=== PATIENT | female | born 1985 | race Caucasian/White ===

== ENCOUNTER 2020-08-25 07:53 | Observation (INO) | payer OTHER, SELFPAY ==
--- NOTE | ~2020-08-25 | US_ITS ---
EXAMINATION: US OB limited DATE: 08/25/2020 09:24 INDICATION: Vaginal bleeding during second trimester twin TECHNIQUE: Real-time ultrasound of the pelvis was performed. The interpreting radiologist was not pre sent for the study. COMPARISON: None. FINDINGS: There is an intrauterine twin . The fetuses are by a thin membrane and i n breech presentation. The placentas are posterior. The placenta for baby A and abuts the internal ce rvical os. There is a 1.6 x 2.3 x 0.8 cm hypoechoic area along the margin of the placenta of baby A. cardiac activity and movement are noted. heart rate is 141 bpm for baby A and 169 b pm for baby B. The amniotic fluid index is subjectively normal. IMPRESSION: 1. Live twin pregnancies in breech presentation. 2. Hypoechoic area along the placental margin of baby A which could reflect small hemorrhage. 3. Low-lying placenta for baby A. Reviewed, dictated and finalized at location A. IMPRESSION: 1. Live twin pregnancies in breech presentation. 2. Hypoechoic area along the placental margin of baby A which could reflect sma ll hemorrhage. 3. Low-lying placenta for baby A.
[2020-08-25 08:15] VITALS: BP 122/57; PULSE 77
[2020-08-25 08:22] VITALS: BP 122/57; PULSE 77
[2020-08-25 08:24] VITALS: BP 102/56; PULSE 77
[2020-08-25 08:30] VITALS: BP 91/54; PULSE 78
[2020-08-25 08:40] VITALS: BP 97/58; PULSE 77
[2020-08-25 08:50] VITALS: BP 101/65; PULSE 82
--- NOTE | 2020-08-25 09:02 | PM.IMHP ---
H&P: HPI History of Present Illness Date/Time: 08/25/20 09:02 Chief Complaint: bleeding, twin Narrative: Yasemin is a at 19 weeks with mono/di twins who presents for bleeding. At 530 had a small gush of dark blood, since then spotting brown. Has velamentous cord insert x2. Saw MFM last on Thursday. NO cramping or pain. Is Rh neg. Had an episode similar to this in June, stopped ASA at that time, and MFM just restarted it on Thursday. Review of Systems Review of Systems: All systems reviewed & are unremarkable except as noted in HPI and below Meds Home Medications and Allergies Home Medications Medication Instructions Recorded Confirmed Type [id number] fumarate-FA 1 tablet PO DAILY 08/25/20 08/25/20 History [] aspirin [Aspir-81] 81 mg PO DAILY 08/25/20 08/25/20 History cholecalciferol (vitamin D3) 25 mcg PO DAILY 08/25/20 08/25/20 History [Vitamin D3] Allergies Allergy/AdvReac Type Severity Reaction Status Date / Time No Known Allergies Allergy Unverified 05/03/13 19:34 Vital Signs Vital Signs - 24 hr 08/25/20 08:15 08/25/20 08:22 08/25/20 08:24 Pulse Rate 77 77 77 Blood Pressure 122/57 L 122/57 L 102/56 L 08/25/20 08:30 08/25/20 08:40 08/25/20 08:50 Pulse Rate 78 77 82 Blood Pressure 91/54 L 97/58 L 101/65 Exam Const: General: no acute distress Resp: Effort & Inspection: normal respiratory effort GI: GI Palp: Yes Soft to palpation Other: nontender, uterus soft : Other: toco: no contractions or irritability SSE: cervix visually closed with some mucous with brown/dark red blood mixed in gentle SVE: ext os 0.5cm, int closed Extrem: General: normal to inspection Assessment and Plan Assessment and plan (1) Monochorionic diamniotic twin gestation in second trimester: Code(s): O30.032 - Twin , monochorionic/diamniotic, second trimester Status: Acute (2) Antepartum bleeding, second trimester: Code(s): O46.92 - Antepartum hemorrhage, unspecified, second trimester Status: Acute (3) Velamentous insertion of umbilical cord in second trimester: Code(s): O43.122 - Velamentous insertion of umbilical cord, second trimester Status: Acute Additional Plan CBC Rhogam US in radiology for well being and source of bleeding SSE is reassuring Will talk with MFM on Thursday re possibly stopping ASA pelvic rest
[2020-08-25 09:07] LABS: Hemoglobin 11.9 g/dL (12.0-15.0); Mean Corpuscular HGB Conc 33.1 g/dl (32-36); Mean Corpuscular Hemoglobin 29.3 pg (26-34); Mean Corpuscular Volume 88.7 fl (80-100); Mean Platelet Volume 10.9 fl (7.4-10.4); Platelet Count Result 229 k/mm3 (150-375); Red Blood Count 4.06 M/mm3 (4.2-5.4); Red Cell Distribution Width 14.2 % (11.5-14.5); White Blood Count 8.7 K/mm3 (4.5-10.0)
--- NOTE | 2020-08-25 10:05 | PC.NURSE ---
1005--Report to Dr. Alvarez re: u/s report, orders received that pt. may go home after rhogam injection and educate her re: pelvic rest.
[2020-08-25 10:08] VITALS: BMI 29.7
--- NOTE | 2020-08-25 10:08 | OBADM ---
This patient, Yasemin Alva, admitted to the OB room OB Post 116 for observation. Patient/family oriented to hospital policies and general routines including ID bracelet, bed and alarms, visiting hours, pain management, procedures, bathroom and other care routines, personal items, smoking policy, room service/diet, and visiting hours. Patient/Family are encouraged to report perceived risks to care and to ask questions if they do not understand what they are told or what they should do. Pt. reports gush of blood at approx. 0530, she states it was maroonish, brownish and only happened once. She denies intercourse, a fall or bump on her abdomen. Pt. denies any pain and reports movement. She is with twins 18.6 weeks gestation as a result of IVF and states she was started on ASA 81mg on Thursday. Kinmundy applied and will monitor and notify
[2020-08-25] MEDS: RHO(D) IMMUNE GLOBULIN 300 MCG/2 ML SYRINGE IM (10:48)
== END 2020-08-25 10:55 | disposition home or self-care (01) ==
PROVIDERS: Admitting Provider Obstetrics & Gynecology; Visit Provider Obstetrics & Gynecology
DX: O30.032 Twin pregnancy, monochorionic/diamniotic, second trimester (principal); O43.122 Velamentous insertion of umbilical cord, second trimester; O46.92 Antepartum hemorrhage, unspecified, second trimester; Z3A.19 19 weeks gestation of pregnancy; Z79.82 Long term (current) use of aspirin
CPT/HCPCS: 36415; 76815; 85027; 85461; 90384; 96372; G0378; G0379; J2790

== ENCOUNTER 2020-09-14 08:47 | Outpatient (CLI) | payer OTHER, SELFPAY ==
[2020-09-14] MEDS: RHO(D) IMMUNE GLOBULIN 300 MCG/2 ML SYRINGE IM (12:45)
== END 2020-09-14 08:48 | disposition home or self-care (01) ==
LOC: ANHOBOP 09:13
PROVIDERS: Visit Provider Obstetrics & Gynecology
DX: Z36.89 Encounter for other specified antenatal screening (principal); O36.0130 Maternal care for anti-D [Rh] antibodies, third trimester, not applicable or unspecified; Z3A.00 Weeks of gestation of pregnancy not specified
CPT/HCPCS: 36415; 85461; 86880; 90384; 96372; J2790

== ENCOUNTER 2020-11-20 08:37 | Outpatient (RCR) | payer OTHER, SELFPAY ==
[2020-11-19] MEDS: BETAMETHASONE SOD PHOS/ACETATE 30 MG/5 ML VIAL 12 MG IM (09:01)
[2020-11-20] MEDS: BETAMETHASONE SOD PHOS/ACETATE 30 MG/5 ML VIAL 12 MG IM (09:00)
== END 2020-12-24 14:54 | disposition home or self-care (01) ==
LOC: ANHOBOP 08:37
PROVIDERS: Visit Provider Obstetrics & Gynecology
DX: O36.8990 Maternal care for other specified fetal problems, unspecified trimester, not applicable or unspecified (principal); Z3A.00 Weeks of gestation of pregnancy not specified
CPT/HCPCS: 96372; J0702

== ENCOUNTER 2020-11-20 08:38 | Outpatient (RCR) | payer OTHER, SELFPAY ==
[2020-11-20] MEDS: RHO(D) IMMUNE GLOBULIN 300 MCG/2 ML SYRINGE IM (08:59)
== END 2021-02-17 23:59 | disposition home or self-care (01) ==
LOC: ANHLAB 08:38
PROVIDERS: Visit Provider Obstetrics & Gynecology
DX: Z29.13 Encounter for prophylactic Rho(D) immune globulin (principal); O36.0190 Maternal care for anti-D [Rh] antibodies, unspecified trimester, not applicable or unspecified; Z3A.00 Weeks of gestation of pregnancy not specified
CPT/HCPCS: 36415; 85461; 86880; 86902; 90384; 96372; J2790

== ENCOUNTER 2020-12-01 05:58 | Observation (INO) | payer OTHER, SELFPAY ==
[2020-12-01] VITALS (11 sets, daily range): BP systolic 101–111; BP diastolic 56–75; PULSE 88–119; RESP 16; O2SAT 99–100; BMI 31.0
--- NOTE | 2020-12-01 06:50 | OBADM ---
This patient, Yasemin Alva, admitted to the OB room Labor/Delivery/Recovery 119 at 0558 for observation for premature ROM. Patient/family oriented to hospital policies and general routines including ID bracelet, bed and alarms, visiting hours, pain management, procedures, bathroom and other care routines, personal items, smoking policy, room service/diet, and visiting hours. Patient/Family are encouraged to report perceived risks to care and to ask questions if they do not understand what they are told or what they should do.
[2020-12-01] MEDS: TERBUTALINE SULFATE 1 MG/ML VIAL 0.25 MG SUB-Q (07:26)
[2020-12-01] MEDS: LACTATED RINGERS 1,000 ML 125 ML IV CONT (07:34)
--- NOTE | 2020-12-01 08:06 | PM.IMHP ---
H&P: HPI History of Present Illness Date/Time: 12/01/20 08:06Is patient is a 35-year-old 6 para 3023 at 32 weeks and 6 days twin Monochorionic diamniotic gestation presents with ruptured membranes. Her is complicated by a Vasa previa, low-lying placenta, velamentous insertion. she is Rh negative and has received RhoGAM previously 2 times. She has also received steroids on the & 20 November 2020. She feels pressure but no contractions. She denies any vaginal bleeding. She denies any nausea, vomiting, fever, chills. She denies any chest pain or shortness of breath. Chief Complaint: Watery vaginal discharge Review of Systems Review of Systems: All systems reviewed & are unremarkable except as noted in HPI and below Meds Home Medications and Allergies Home Medications Medication Instructions Recorded Confirmed Type 1 tablet PO DAILY 08/25/20 08/25/20 History aspirin 81 mg PO DAILY 08/25/20 08/25/20 History cholecalciferol (vitamin D3) 25 mcg PO DAILY 08/25/20 08/25/20 History [Vitamin D3] Allergies Allergy/AdvReac Type Severity Reaction Status Date / Time No Known Allergies Allergy Unverified 05/03/13 19:34 Exam Const: General: healthy appearing, comfortable and no acute distress Resp: Auscultation: clear to auscultation bilaterally, no rales, no rhonchi and no wheezes Cardio: Rate: regular rate Heart sounds: no click, no murmurs and no rubs GI: Inspection: non-distended Auscultation: normal bowel sounds Extrem: General: normal to inspection, no pedal edema and no calf tenderness Assessment and Plan Assessment and plan (1) Velamentous insertion of umbilical cord in second trimester: Code(s): O43.122 - Velamentous insertion of umbilical cord, second trimester Status: Acute (2) Antepartum bleeding, second trimester: Code(s): O46.92 - Antepartum hemorrhage, unspecified, second trimester Status: Acute (3) Monochorionic diamniotic twin gestation in second trimester: Code(s): O30.032 - Twin , monochorionic/diamniotic, second trimester Status: Acute (4) Low lying placenta nos or without hemorrhage, third trimester: Code(s): O44.43 - Low lying placenta NOS or without hemorrhage, third trimester Status: Acute (5) Vasa previa: Code(s): O69.4XX0 - Labor and delivery complicated by vasa previa, not applicable or unspecified Status: Acute (6) Rh negative state in antepartum period: Code(s): O26.899 - Other specified related conditions, unspecified trimester; Z67.91 - Unspecified blood type, Rh negative Status: Acute Assessment and Plan: this patient is a 35-year-old female at 32 weeks gestation with a mono chorionic diamniotic twins with premature rupture membranes. her is complicated by Vasa previa, low-lying placenta, velamentous cord insertion, Rh negative, in-vitro fertilization. She is known to the doctors at [facility]. She does not appear to be in labor. She is very stable. Terbutaline and magnesium sulfate have been applied. She was examined with speculum and cervix appears to be closed. It appears to be thick. She received steroids on the and 21 November 2019. She will be transferred by air to [facility]. Dr. CASTILLO has accepted the transfer.
[2020-12-01] MEDS: MAGNESIUM SULF 4 GM/WATER100ML 4 GM/100 ML BAG IVPB (08:12)
== END 2020-12-01 08:58 | disposition short-term general hospital (02) ==
PROVIDERS: Admitting Provider Obstetrics & Gynecology; Visit Provider Obstetrics & Gynecology
DX: O30.033 Twin pregnancy, monochorionic/diamniotic, third trimester (principal); O69.4XX0 Labor and delivery complicated by vasa previa, not applicable or unspecified; O43.123 Velamentous insertion of umbilical cord, third trimester; O42.913 Preterm premature rupture of membranes, unspecified as to length of time between rupture and onset of labor, third trimester; O44.43 Low lying placenta NOS or without hemorrhage, third trimester; Z3A.32 32 weeks gestation of pregnancy
CPT/HCPCS: 84112; 96372; 96374; G0378; G0379; J3105; J3475; J7120

== ENCOUNTER 2022-07-22 01:13 | Day surgery (SDC) | payer OTHER, SELFPAY ==
--- NOTE | 2022-07-14 10:27 | SUR.PREOP ---
Report to the Outpatient Waiting Room, entrance under the green pavilion located off [facility], at time 0630 on date 07/22/22. Planned Procedure Time: 0830. Time changes happen often and if your time is changed the preop area will call you the afternoon before. - You and your visitor will be asked to self-screen and do not enter if you have any COVID symptoms. - A mask is optional within the hospital at this time. Patients may have clear liquids (water, carbonated beverages, clear teas, apple juice) until 3 hours prior to surgery with a maximum of 20 ounces. - NO CLEAR LIQUIDS AFTER 0530 - No food from midnight until time of surgery - Infants may have breast milk until 4 hours before surgery, formula 6 hours prior to surgery. - Children will be allowed to drink immediately following surgery. If applicable, please bring a bottle or sippy cup to assist with drinking. Juice, water, soda, and popsicles are readily available. For infants on formula, please bring formula the day of surgery. Pacifiers are allowed. Please no make-up, nail malawian, hairspray, perfume, deodorant, or body powder the day of surgery. No jewelry (including any body piercings) or valuables the day of surgery, leave them at home. Please take a shower or bath the night before, or the morning of, surgery with an antibacterial soap. Wear comfortable, loose fitting clothing. Children are encouraged to wear pajamas. - Jewelry must be removed prior to entering the operating room. Rings and piercings that are not removed may be cut off. - The hospital will not accept responsibility for valuables. - Please leave all valuables, including medications, at home the day of surgery. If you are going home after surgery, a licensed batch mixing truck driver must drive you home. - NO public transportation without another adult if you receive anesthesia. - We recommend that an adult stay with you for 24 hours following discharge. - We also recommend that you do not drive, make important decision, drink alcoholic beverages, or take any drugs that were not prescribed by your health care provider for at least 24 hours after your discharge time. For Pediatric surgeries, we recommend two adults accompany the child home. Follow any additional instructions given to you from your surgeon. If you or anyone in your household have experienced Covid symptoms in the past week, please notify your surgeon or the nurse liaison at the phone number below for possible testing. Telephone instructions given to LYNNETTE ZAMARRIPA and asked if any additional questions and then verbalized understanding. Patient advised to call surgeon office or pre surgery nurse liaison [phone] if any additional questions.
[2022-07-14 10:36] VITALS: BMI 25.8
[2022-07-22] VITALS (7 sets, daily range): BP systolic 99–131; BP diastolic 50–73; PULSE 51–77; RESP 14–20; TEMP 36.2–36.4; O2SAT 100
[2022-07-22] MEDS: ACETAMINOPHEN 500 MG TABLET 1000 MG PO (07:24)
--- NOTE | 2022-07-22 07:29 | PM.IMHP ---
H&P: HPI History of Present Illness Date/Time: 07/22/22 07:29 Chief Complaint: desires sterilization Narrative: Yasemin is a 37yo most recently with a set of twins who desires permanent sterilization. She is here for LSC bilateral salpingectomy. Has a mirena in currently. 3 vag deliveries and CS for the twins. No sig med hx. Review of Systems Review of Systems: All systems reviewed & are unremarkable except as noted in HPI and below PMFSH Social History Social History Smoking status: Never smoker Living arrangements: with family Spiritual care concerns: No Meds Home Medications and Allergies Home Medications Medication Instructions Recorded Confirmed Type fluoxetine 20 mg capsule 20 mg HS 07/14/22 07/22/22 History Allergies Allergy/AdvReac Type Severity Reaction Status Date / Time No Known Allergies Allergy Verified 07/22/22 06:32 Exam Const: General: no acute distress Resp: Effort & Inspection: normal respiratory effort Auscultation: clear to auscultation bilaterally Cardio: Rate: regular rate Rhythm: regular rhythm GI: GI Palp: Yes Soft to palpation Extrem: General: normal to inspection Assessment and Plan Assessment and plan (1) Admission for sterilization: Code(s): Z30.2 - Encounter for sterilization Status: Acute Plan consented for sterilization via LSC bilateral salpingectomy. discussed RBA, will proceed.
[2022-07-22] MEDS: LACTATED RINGERS 1,000 ML 30 ML IV CONT ×2 (07:30→09:57)
[2022-07-22] MEDS: KETOROLAC 15 MG/ML VIAL (*BKC) IV PUSH (07:35)
--- NOTE | 2022-07-22 08:04 | WPDANESEPPF ---
Anes - Initial Pre Proc Eval Procedure: Operation Date: 07/22/22 08:30 Proposed Procedures p Laparoscopic Bilateral Salpingectomy - Ewelina Alvarez MD Date/Time: 07/22/22 08:04 Surgeon: Ewelina Alvarez MD Pre Op Diagnosis: Desire Sterilization Patient Data Age: 37 Gender: F Height: 1.63 m Weight: 68.1 kg Last Vital Signs Temp 36.4 C 07/22/22 06:33 Pulse 62 07/22/22 06:33 Resp 20 07/22/22 06:33 BP 102/66 07/22/22 06:33 Pulse Ox 100 07/22/22 06:33 Allergies Allergy/AdvReac Type Severity Reaction Status Date / Time No Known Allergies Allergy Verified 07/22/22 06:32 Home Medications Medication Instructions Recorded Confirmed Type fluoxetine 20 mg capsule 20 mg HS 07/14/22 07/22/22 History Patient hx anesthesia problems: none Family hx anesthesia problems: none Results Review: All pre-operative results and documents have been reviewed as part of the pre-operative evaluation. FOR[facility], [facility] Social History Social History Smoking status: Never smoker Living arrangements: with family Spiritual care concerns: No Anes - Eval Final PreProcedure Day of Procedure 07/22/22 08:04 Patient weight: normal Heart: regular rate and rhythm Lungs: clear to auscultation Airway: Mallampati scale class II Neurological: alert and oriented Last oral intake: >/= 8 hours ASA classification: II Emergent: no Anesthetic plan: proceed Anesthesia type and monitoring: general ETT and standard monitoring Results Review: All pre-operative results and documents have been reviewed as part of the pre-operative evaluation. Informed Consent: The patient's anesthetic plan and its attendant risks and benefits were discussed with the patient/family/POA. Questions were solicited and answers provided to the satisfaction of the patient/family/POA.
--- NOTE | 2022-07-22 08:57 | WPDHPUPDATE1 ---
History and Physical Update Update Date/Time: 07/22/22 08:57 History and Physical has been reviewed, including an updated exam of the patient. There are NO changes in the patient's condition. Risks, benefits, and alternatives have been discussed and questions answered. Patient agrees to proceed with procedure.
[2022-07-22] MEDS: ceFAZolin 2 GM/D5W 50 ML 2 GM/50 ML BAG IVPB (09:14)
[2022-07-22] MEDS: BUPIVACAINE/EPINEPHRINE 0.25% 10 ML VIAL INFILTRATE (09:52)
--- NOTE | 2022-07-22 09:59 | P.OP_ITS ---
Procedure Note - Detailed Date of Procedure 07/22/22 Pre-op Diagnosis Desire Sterilization Post-op Diagnosis Same Procedure Performed Laparoscopic Bilateral Salpingectomy Surgeon Ewelina Alvarez MD Anesthesia General Indications undesired future fertility Findings normal tubes, ovaries, and uterus Description of Procedure The patient was taken to the OR and placed in dorthal lithotomy in [facility]. She received general anesthesia. A speculum was placed and the cervix grasped with a single tooth tenaculum and an acorn uterine manipulator placed easily. A ochoa catheter had previously been placed. She had received preoperative antibiotics. A 5mm subumbilical skin incision was made and using direct visualization, the trocar was inserted intraperitoneally. The abdomen was insufflated and the pelvis inspected with the above findings. Bilateral 5mm incisions were made and trocars were placed under direct visualization. The right tube was grasped and elevated and using the Ligasure device, the tube was sequentially cauterized and ligated and removed through the trocar and sent to pathology. Similarly, on the left, the tube was removed using the Ligasure device. Hemostasis was noted. The upper abdomen was inspected and noted to be normal. The trocars were removed and the Co2 was removed from the abdomen. The skin was closed with 4-0 vicryl and steri strips. The patient tolerated the procedure well and was taken to the recovery room in stable condition. EBL 10cc. Estimated Blood Loss 10 Drains No Packing No Pathology Yes Complications No immediate complications Condition Stable Disposition Same day
== END 2022-07-22 11:25 | disposition home or self-care (01) ==
PROVIDERS: Visit Provider Obstetrics & Gynecology
PROC: (CPT 49320; principal; 2022-07-22 08:30)
DX: Z30.2 Encounter for sterilization (principal); N83.8 Other noninflammatory disorders of ovary, fallopian tube and broad ligament
CPT/HCPCS: 58661; 88302; A9270; J0690; J1100; J1885; J2250; J2704; J2710; J3010; J7030; J7120